=== PATIENT | female | born 1960 | race Caucasian/White ===

== ENCOUNTER → 2020-11-01 | Outpatient (CLI) | payer OTHER ==
--- NOTE | 2020-11-01 15:05 | US ---
EXAMINATION TYPE: US pelvic complete DATE OF EXAM: 11/01/2020 COMPARISON: NONE CLINICAL HISTORY: N93.9 ABN UTERINE AND VAGINAL BLEEDING. Pt states 2 episodes of vaginal spotting, l ast episode 1 week ago TECHNIQUE: Transabdominal (TA). Transabdominal sonographic images of the pelvis were acquired. Date of LMP: pt states 5-6 years ago EXAM MEASUREMENTS: Uterus: 9.2 x 3.4 x 4.7 cm Endometrial Stripe: 0.6 cm Right Ovary: 2.3 x 2.4 x 1.5 cm Left Ovary: 2.2 x 1.8 x 1.3 cm 1. Uterus: Anteverted Heterogeneous 2. Endometrium: Thickened for post menopausal female not on HRT's 3. Right Ovary: wnl 4. Left Ovary: wnl 5. Bilateral Adnexa: wnl 6. Posterior cul-de-sac: wnl Suboptimal study in transvaginal investigation performed. Slight abnormal thickening of endometrium f or postmenopausal female. IMPRESSION: As above. Suboptimal study. Consider further investigation with transvaginal pelvic ultra sound or endometrial sampling to rule out neoplasm.
== END | disposition home or self-care (01) ==
LOC: RADUSWWP 13:55
PROVIDERS: ATTEND Internal Medicine Geriatric Medicine
DX: R93.89 Abnormal findings on diagnostic imaging of other specified body structures (principal); N93.9 Abnormal uterine and vaginal bleeding, unspecified
CPT/HCPCS: 76856

== ENCOUNTER → 2020-12-22 | Outpatient (CLI) | payer OTHER ==
--- NOTE | 2020-12-26 08:36 | MM ---
Reason for exam: screening (asymptomatic). Last mammogram was performed 4 years and 4 months ago. History: Patient is postmenopausal and has history of other cancer at age 55. Benign excisional biopsy of the right breast, 2005. Took hormonal contraceptives for 8 years. Physical Findings: A clinical breast exam by your physician is recommended on an annual basis and results should be correlated with mammographic findings. MG Screening Mammo w CAD Bilateral CC and MLO view(s) were taken. Prior study comparison: September 06, 2016, bilateral MG screening mammo w CAD. There are scattered fibroglandular densities. There is chronic nodularity in the left breast, increasing in size, 9cm and 5cm from nipple. ASSESSMENT: Incomplete: need additional imaging evaluation, BI-RAD 0 RECOMMENDATION: Ultrasound of the left breast. [facility] will attempt to contact patient to return for ultrasound.
== END | disposition home or self-care (01) ==
LOC: RADMAMWWP 09:26
PROVIDERS: ATTEND Internal Medicine Geriatric Medicine
DX: Z12.31 Encounter for screening mammogram for malignant neoplasm of breast (principal); Z78.0 Asymptomatic menopausal state
CPT/HCPCS: 77067

== ENCOUNTER 2020-12-23 06:13 | Day surgery (SDC) | payer OTHER ==
[2020-12-21 09:25] VITALS: BMI 34.3
--- NOTE | 2020-12-22 14:47 | P.HPOB ---
History of Present Illness H&P Date: 12/22/20 Chief Complaint: Postmenopausal bleeding, endometrial thickening This is a 60 y.o. female, 2, para 2, who presents for dilatation and curettage with hysteroscopy due to postmenopausal bleeding and endometrial thickening on ultrasound. Her bleeding began about a month ago when she wiped and she had a couple small clots over a few hours and then it stopped. She had some spotting the next day and then a week later. Pelvic US showed uterus measuring 9.2 x 3.4 x 4.7 cm, with an endometrial thickness of 6 mm. Ovaries normal. Her LMP was age 52-53. OB Hx: . History of 2 vaginal deliveries. 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 Review of Systems Constitutional: Reports night sweats, Reports weight gain, Denies chills, Denies fever Eyes: denies blurred vision, denies pain Ears, nose, mouth and throat: Denies headache, Denies sore throat Cardiovascular: Denies chest pain, Denies shortness of breath Respiratory: Denies cough Gastrointestinal: Reports constipation, Denies abdominal pain Genitourinary: Reports abnormal vaginal bleeding, Reports stress incontinence Menstruation: Reports postmenopausal Musculoskeletal: Reports low back pain Neurological: Reports memory loss, Denies numbness, Denies weakness Psychiatric: Reports anxiety, Reports depression, Reports difficulty concentrating Endocrine: Reports flushing Past Medical History Past Medical History: Asthma, Cancer Additional Past Medical History / Comment(s): melanoma rt leg History of Any Multi-Drug Resistant Organisms: None Reported Past Surgical History: Breast Surgery, Cholecystectomy Additional Past Surgical History / Comment(s): melanoma wide incision rt leg. lumpectomy rt breast benign Past Anesthesia/Blood Transfusion Reactions: Previous Problems w/ Anesthesia, Postoperative Nausea & Vomiting (PONV) Additional Past Anesthesia/Blood Transfusion Reaction / Comment(s): slow to wake up from anesthesia Smoking Status: Current every day smoker - Past Family History Mother Family Medical History: Cancer, COPD, Diabetes Mellitus Additional Family Medical History / Comment(s): kidney cancer Medications and Allergies Home Medications Medication Instructions Recorded Confirmed Type Albuterol Inhaler [Ventolin Hfa 1 puff INHALATION DAILY PRN 12/21/20 12/23/20 History Inhaler] Aspirin [Adult Low Dose Aspirin EC] 81 mg PO DAILY 12/21/20 12/23/20 History DULoxetine HCL [Cymbalta] 60 mg PO DAILY 12/21/20 12/23/20 History lisinopriL [Lisinopril] 20 mg PO DAILY 12/21/20 12/23/20 History Allergies Allergy/AdvReac Type Severity Reaction Status Date / Time No Known Allergies Allergy Verified 12/23/20 06:47 Exam Osteopathic Statement: *. No significant issues noted on an osteopathic structural exam other than those noted in the History and Physical/Consult. HEENT: within normal limits Heart: regular rate and rhythm Lungs: clear to auscultation bilaterally Abdomen: soft, non-tender Pelvic: Cevix-small friable polyp-removed; uterus small, anteverted, non-tender with no adnexal masses palpate Extremities: neg Negro's. Assessment and Plan (1) Postmenopausal bleeding Current Visit: No Status: Acute Code(s): N95.0 - POSTMENOPAUSAL BLEEDING SNOMED Code(s): 12466705 (2) Endometrial thickening on ultrasound Current Visit: No Status: Acute Code(s): R93.89 - ABNORMAL FINDINGS ON DX IMAGING OF OTH BODY STRUCTURES SNOMED Code(s): 099228014 Plan: Proceed with dilatation and curettage with hysteroscopy. I have discussed the risks, benefits, and alternative therapies for the above- mentioned procedure and for both sedation/anesthesia as well as necessary blood products administration, if indicated, as they pertain to this patient. The patient has indicated her understanding and acceptance of the risks and procedures discussed.
[~2020-12-23 06:13] MED LIST: HYDROmorphone 0.5 MG/0.5 ML SYRINGE IVP PRN; LACTATED RINGERS 1,000 ML IV SCH; ONDANSETRON 4 MG/2 ML VIAL IVP ONE; Pre Op ABX Message 1 EACH MISC MISCELLANE ONE; fentaNYL (PF) 50 MCG/ML 2 ML AMP IV PRN
[2020-12-23] MEDS ORDERED: LIDOCAINE 1% (10MG/ML) FOR IV START INTRADERMA ONE (06:55)
[2020-12-23] MEDS ORDERED: DEXAMETHASONE SOD PHOSPHATE 4 MG/ML 1 ML VIAL IV ONE (07:01)
[2020-12-23] MEDS ORDERED: PROPOFOL 10 MG/ML 20 ML VIAL IV ONE (07:39)
[2020-12-23] MEDS ORDERED: MIDAZOLAM 2 MG/2 ML VIAL ONE (07:39)
[2020-12-23] MEDS ORDERED: KETOROLAC 15 MG/ML 1 ML VIAL ONE (07:39)
[2020-12-23] MEDS ORDERED: fentaNYL (PF) 50 MCG/ML 2 ML AMP ONE (07:39)
[2020-12-23] MEDS ORDERED: LIDOCAINE 1% INJ 10MG/ML (20 ML MDV) ONE (07:39)
--- NOTE | 2020-12-23 08:05 | P.OP ---
Date of Procedure: 12/23/20 Preoperative Diagnosis: Postmenopausal bleeding Endometrial thickening Postoperative Diagnosis: Same Procedure(s) Performed: Dilation and curettage with hysteroscopy Anesthesia: other (Mask general) Surgeon: Danyelle Cordova Estimated Blood Loss (ml): 2 Pathology: other (Endometrial curettings) Condition: stable Disposition: same day Indications for Procedure: This is a 60 y.o. female, 2, para 2, who presents for dilatation and curettage with hysteroscopy due to postmenopausal bleeding and endometrial thickening on ultrasound. Her bleeding began about a month ago when she wiped and she had a couple small clots over a few hours and then it stopped. She had some spotting the next day and then a week later. Pelvic US showed uterus measuring 9.2 x 3.4 x 4.7 cm, with an endometrial thickness of 6 mm. Ovaries normal. Her LMP was age 52-53. Operative Findings: Uterus is mid position, sounded to 8 cm. No adnexal masses are palpated. Upon hysteroscopy, a very atrophic appearing pattern was noted. Both tubal ostia are visualized. No polyps or fibroids are visualized. Very scant endometrial tissue is obtained. Description of Procedure: The patient is taken to the operating room where she is placed in the dorsal lithotomy position. She is prepped and draped in the normal sterile fashion. Her bladder is drained with a catheter. Examination is performed under anesthesia. Uterus is to be mid position, with no adnexal masses palpated. Next a weighted speculum was placed in the patient's vagina and a right angle retractor was used to visualize the cervix. The anterior lip of the cervix is grasped with a single-tooth tenaculum. The uterus is then sounded to 8 cm. Cervix is gently dilated with Hill dilators until a hysteroscope could be passed. Hysteroscopy was performed using normal saline. The above-noted findings are made and pictures are taken. Next the hysteroscope was withdrawn and the cervix gently dilated further. Medium-size sharp curet was introduced and sharp curettage was performed until a gritty texture was noted. Very scant endometrial tissue was obtained and removed from the field. Next the single- tooth tenaculum was removed and speculum was removed. No bleeding is visualized. All sponge counts are correct. The patient is then taken to recovery room in stable condition.
[2020-12-23 08:18] VITALS: TEMP 97.6
[2020-12-23] MEDS ORDERED: ATROPINE SULFATE 0.1 MG/ML 10ML SYRINGE IVP ONE (08:31)
[2020-12-23] MEDS ORDERED: SODIUM CHLORIDE 0.9% 1,000 ML IV ONE (08:51)
[2020-12-23 08:57] VITALS: RESP 16
[2020-12-23 10:39] VITALS: BP 117/73; PULSE 98
== END 2020-12-23 11:15 | disposition home or self-care (01) ==
LOC: OR 06:13
PROVIDERS: ATTEND Obstetrics & Gynecology
DX: N85.8 Other specified noninflammatory disorders of uterus (principal); N95.0 Postmenopausal bleeding; I10 Essential (primary) hypertension; E78.5 Hyperlipidemia, unspecified; F17.210 Nicotine dependence, cigarettes, uncomplicated; R00.1 Bradycardia, unspecified; J45.909 Unspecified asthma, uncomplicated; N85.4 Malposition of uterus; Z79.51 Long term (current) use of inhaled steroids; Z79.899 Other long term (current) drug therapy; Z85.820 Personal history of malignant melanoma of skin; Z98.890 Other specified postprocedural states; Z90.49 Acquired absence of other specified parts of digestive tract; Z91.89 Other specified personal risk factors, not elsewhere classified; Z87.898 Personal history of other specified conditions; Z79.82 Long term (current) use of aspirin; Z87.42 Personal history of other diseases of the female genital tract; Z82.5 Family history of asthma and other chronic lower respiratory diseases; Z80.51 Family history of malignant neoplasm of kidney; Z83.3 Family history of diabetes mellitus
CPT/HCPCS: 88305; 58558; J2250; J1100; J2405; J2001; J0461; J3010; J1885; J2704; J1170

== ENCOUNTER → 2021-01-03 | Outpatient (CLI) | payer OTHER ==
--- NOTE | 2021-01-03 13:35 | USB ---
Reason for exam: additional evaluation requested from abnormal screening. History: Patient is postmenopausal and has history of other cancer at age 55. Benign excisional biopsy of the right breast, 2006. Took hormonal contraceptives for 8 years. Physical Findings: Nurse did not find any significant physical abnormalities on exam. US Breast Workup LT Left complete breast ultrasound includes all four quadrants, the retroareolar region and axilla. Finding demonstrates a 11 x 4 x 9mm oval, mixed lesion at 9 o'clock, possible lymph node versus duct or cyst with internal filling defect, 6 month follow up to assess for any change and potential biopsy at that time, likely mammographic correlate, seem to have been present in 2016 but slightly smaller and duct ectasia at the posterior nipple. ASSESSMENT: Probably benign, BI-RAD 3 RECOMMENDATION: Follow-up diagnostic mammogram and ultrasound of the left breast in 6 months.
== END | disposition home or self-care (01) ==
LOC: RADUSWWP 08:58
PROVIDERS: ATTEND Internal Medicine Geriatric Medicine
DX: Z78.0 Asymptomatic menopausal state (principal)

== ENCOUNTER → 2021-07-28 | Outpatient (CLI) | payer OTHER ==
--- NOTE | 2021-07-31 09:19 | MM ---
Reason for exam: follow-up at short interval from prior study. Last mammogram was performed 7 months ago. History: Patient is postmenopausal and has history of other cancer at age 55. Benign excisional biopsy of the right breast, 2005. Took hormonal contraceptives for 8 years. Physical Findings: Nurse did not find any significant physical abnormalities on exam. MG Diagnostic Mammo LT w CAD CC and MLO view(s) were taken of the left breast. Prior study comparison: December 22, 2020, bilateral MG screening mammo w CAD. September 06, 2016, bilateral MG screening mammo w CAD. There is no discrete abnormality. No significant new findings when compared with previous films. These results were verbally communicated with the patient and result sheet given to the patient on 07/28/21. ASSESSMENT: Benign, BI-RAD 2 RECOMMENDATION: Return to routine screening mammogram schedule for both breasts. Back on schedule.
--- NOTE | 2021-07-31 09:24 | USB ---
Reason for exam: follow-up at short interval from prior study. History: Patient is postmenopausal and has history of other cancer at age 55. Benign excisional biopsy of the right breast, 2005. Took hormonal contraceptives for 8 years. US Breast Limited LT Left limited breast ultrasound including focal area of concern, retroareolar and axilla demonstrates a 1.1 x 0.7 x 0.3cm oval, mixed lesion at 9 o'clock and duct ectasia at the posterior nipple. Left breast scanned 8-12 o'clock and nipple/axilla. These results were verbally communicated with the patient and result sheet given to the patient on 07/28/21. ASSESSMENT: Probably benign, BI-RAD 3 RECOMMENDATION: Ultrasound of the left breast in 6 months.
== END | disposition home or self-care (01) ==
LOC: RADMAMWWP 13:32
PROVIDERS: ATTEND Internal Medicine Geriatric Medicine
DX: R92.2 Inconclusive mammogram (principal)
CPT/HCPCS: 77065

== ENCOUNTER → 2022-03-07 | Outpatient (CLI) | payer OTHER ==
--- NOTE | 2022-03-07 12:29 | CA ---
Exercise Stress Test Report Name: Selena Maciel Exam Date: 03/07/2022 11:15 Exam Location: [facility] Ht (in): 64 Wt (lb): 210 BSA: 2.00 Ordering Phys: Benjamin Alvarado MD Referring Phys: Catie Vincent Technologist: Jeff Menjivar Age: 61 Gender: F : 1960 Procedure CPT: Indications: R07.9 CHEST PAIN ICD-10 Codes: Patient History: DIZZINESS, PALPITATIONS, HTN, SOCIAL SMOKING HX OF GREATER THAN 45 YEARS, ASTHMA Medications: LISINOPRIL, ZYMBALTA, PROBIOTIC, ASA 81 mg Meds past 24 hrs: Pretest Chest Pain: STRESS TEST Warren Protocol Exercise Duration (min:sec): 04:[address] Depressions (mm): Angina Score: Horton Score: Resting HR (bpm): 82 Peak HR (bpm): 152 Resting BP (mmHg): 127 / 72 Peak BP (mmHg): / 81 MPHR: 160 Target HR: 136 % MPHR: 95 METS: 7.1 Total Dose: Peak Dose: Atropine: Double Product: BP Response: Stress Termination: Dyspnea Maximum heart rate obtained Stress Symptoms: DIZZINESS,DIFFICULTY IN BREATHING Stress Summary: ECG ANALYSIS Resting ECG: Stress ECG: CONCLUSIONS Baseline EKG revealed normal sinus rhythm without significant ST-T changes. Patient walked for 4 minutes 25 seconds on a standard Warren protocol and achieved a maximal heart rate of 152 bpm which is more than 85% of predicted maximal. She developed fatigue and shortness of breath but did not have any angina. She had shortness of breath and dizziness. EKG did not reveal any ST segment changes to indicate ischemia. By EKG criteria this is a negative stress test with limited exercise capacity Dr. Luís Boone MD (Electronically Signed) Final Date: 07 March 2022 12:28
== END | disposition home or self-care (01) ==
LOC: RADNMMAIN 10:40
PROVIDERS: ATTEND Internal Medicine Geriatric Medicine
DX: R07.9 Chest pain, unspecified (principal)
CPT/HCPCS: 93017

== ENCOUNTER → 2023-01-04 | Outpatient (CLI) | payer OTHER ==
--- NOTE | 2023-01-04 12:36 | CTL ---
EXAMINATION TYPE: CT Low Dose Lung DATE OF EXAM ORDERED: 01/04/2023 HISTORY: Z87.891. Lung cancer screening CT DLP: [address] CTDI: 2.49 mGy Automated exposure control for dose reduction was used. SCREENING VISIT: First screening visit COMPARISON: None TECHNIQUE: Low dose computed tomography scan was performed through the chest at 1 mm thick sections a nd reconstructed images in multiple planes at 1 mm and [address] DIAGNOSTIC QUALITY: Satisfactory FINDINGS: LUNG NODULES: No clinically significant pulmonary nodule. 3 mm nodule along the left major fissure is favored to represent an intrafissural lymph node. LUNGS: COPD: Severity: None Fibrosis: Severity: None Lymph nodes: None Other findings: None RIGHT PLEURAL SPACE: Effusion: None Calcification: None Thickening: None Pneumothorax: None LEFT PLEURAL SPACE: Effusion: None Calcification: None Thickening: None Pneumothorax: None HEART: Heart Size: Normal Coronary Calcification: None Pericardial Effusion: None OTHER FINDINGS: Upper abdomen: Post cholecystectomy changes. Bony thorax: None Supraclavicular region: None Other: None IMPRESSION: No clinically significant pulmonary nodules. CT LUNG RAD AND CT CHEST RECOMMENDATION: Lung-Rad 1 Negative: Continue annual screening with LDCT in 12 months. S Modifier (other clinically significant findings): None
== END | disposition home or self-care (01) ==
LOC: RADCTMAIN 12:13
PROVIDERS: ATTEND Internal Medicine Geriatric Medicine
DX: Z12.2 Encounter for screening for malignant neoplasm of respiratory organs (principal); F17.210 Nicotine dependence, cigarettes, uncomplicated
CPT/HCPCS: 71271

== ENCOUNTER → 2023-03-05 | Outpatient (CLI) | payer OTHER ==
--- NOTE | 2023-03-05 09:44 | MM ---
Reason for Exam: Follow-up at short interval from prior study. Last mammogram was performed 2 year(s) and 2 month(s) ago. Patient History: Menarche at age 13. First Full-Term at age 21. Postmenopausal. Other cancer, age 55. Patient used Hormonal Contraceptives for 8 years. 2006, Benign Excisional Biopsy on the right side. Maternal cousin had breast cancer at or over age 50. Risk Values: Heidi 5 year model risk: 1.6%. NCI Lifetime model risk: 7.5%. Tissue Density: The breast tissue is heterogeneously dense. This may lower the sensitivity of mammography. Findings: Analyzed By CAD. Stable chronic nodularity within the left breast. No new suspicious masses within either breast. No worrisome group of calcifications within either breast. Stable postexcisional changes of the right breast. Overall Assessment: Benign, BI-RAD 2 Management: Screening Mammogram of both breasts in 1 year. A clinical breast exam by your physician is recommended on an annual basis and results should be correlated with mammographic findings. This exam should not preclude additional follow-up of suspicious palpable abnormalities. Results were given to the patient verbally at the time of exam. Note on Heidi scores and lifetime risk: 1. A Heidi score greater than 3% is considered moderate risk. If this is the case, consider specialist referral to assess eligibility for a risk reducing agent. If overall lifetime risk for the development of breast cancer is 20% or higher, the patient may qualify for future screening with alternating mammogram and breast MRI. Electronically signed and approved by: Micah Walters D.O.
--- NOTE | 2023-03-05 10:15 | BD ---
EXAMINATION TYPE: Axial Bone Density DATE OF EXAM: 03/05/2023 CLINICAL HISTORY: 62 years old Female. ICD-10 CODE: Q78.2 OSTEOPETROSIS Height: 62.0 inches Weight: 192.0 pounds FRAX RISK QUESTIONS: Glucocorticoids (More than 3mos): yes, asthma (Ex: prednisone, prednisolone, methylprednisolone, dexamethasone, and hydrocortisone). Current Tobacco Use: yes, vape RISK FACTORS HISTORY OF: Postmenopausal woman: yes, at 51 Hyperparathyroidism: no Adrenal Insufficiency: no MEDICATIONS: Prednisone or other steroids: yes, for asthma for many yrs Additional Medications: bp meds, Cymbalta, hx of ca, Additional History: hx of cancer rt leg melanoma, hypertension, arthritis pain, asthma EXAM MEASUREMENTS: Bone mineral densitometry was performed using the [employer] System. Bone mineral density as measured about the Lumbar spine is: ----- L1-L4(G/cm2): 1.206 T Score Values are as follows: ----- L1: -1.6 ----- L2: 0.6 ----- L3: 1.2 ----- L4: 0.4 ----- L1-L4: 0.2 Z Score Values are as follows: ----- L1: -1.0 ----- L2: 1.1 ----- L3: 1.7 ----- L4: 1.0 ----- L1-L4: 0.8 Bone mineral density is her first bone density at [facility] Bone mineral density about the R hip (g/cm2): 1.116 Bone mineral density about the L hip (g/cm2): 1.231 T Score values are as follows: -----R Neck: 0.2 -----L Neck: 0.3 -----R Total: 1.2 -----L Total: 1.8 Z Score values are as follows: -----R Neck: 1.0 -----L Neck: 1.1 -----R Total: 1.7 -----L Total: 2.2 Bone mineral density is her first dexa study at [facility]. FRAX%s: The graph provided illustrates a 8.8% chance for a major osteoporotic fx and a 0.3% chance fo r the hips probability for fx in 10 years time. IMPRESSION: Normal (Values between +1 and -1 indicate normal bone mass). Consider repeating this study in 5 year s or sooner if there is some new clinical indication. NOTE: T-SCORE=SD OF THE YOUNG ADULT MEAN.
== END | disposition home or self-care (01) ==
LOC: RADMAMWWP 09:20
PROVIDERS: ATTEND Internal Medicine Geriatric Medicine
DX: Q78.2 Osteopetrosis (principal); R92.8 Other abnormal and inconclusive findings on diagnostic imaging of breast; J45.909 Unspecified asthma, uncomplicated; I10 Essential (primary) hypertension; Z78.0 Asymptomatic menopausal state; Z80.3 Family history of malignant neoplasm of breast; R10.9 Unspecified abdominal pain
CPT/HCPCS: 77062; 77066; 77080

== ENCOUNTER → 2023-03-07 | Outpatient (CLI) | payer OTHER ==
--- NOTE | 2023-03-07 10:31 | US ---
EXAMINATION TYPE: US abdomen complete DATE OF EXAM: 03/07/2023 COMPARISON: NONE CLINICAL INDICATION: Female, 62 years old with history of R10.9 ABDOMINAL PAIN; Chest pain x 6 months , pt. describes it as similar to her GB pain. GB resected TECHNIQUE: Multiple sonographic images of the abdomen are obtained. FINDINGS: EXAM MEASUREMENTS: Liver Length: 16.2 cm Gallbladder Wall: Surgically absent cm CBD: 1.1 cm Spleen: 8.5 cm Right Kidney: 9.1x4.3x5.3 cm Left Kidney: 9.9x5.4x5.0 cm FURNACE PACKER NOTES: Pancreas: Tail obscured by overlying bowel gas Liver: upper limits Gallbladder: Surgically absent Evidence for sonographic Kelly's sign: No CBD: enlarged Spleen: wnl Right Kidney: No hydronephrosis or masses seen Left Kidney: No hydronephrosis or masses seen Upper IVC: wnl Abd Aorta: wnl The liver is homogenous. The intrahepatic portion of the IVC and proximal abdominal aorta are within normal limits. The visualized portions of the pancreas are homogenous. The spleen is unremarkabl e. Kidneys are symmetric and free of hydronephrosis. No renal lesions are seen. IMPRESSION: No significant abnormality at this time. The gallbladder surgically absent.
== END | disposition home or self-care (01) ==
LOC: RADUSWWP 08:12
PROVIDERS: ATTEND Internal Medicine Geriatric Medicine
DX: R10.9 Unspecified abdominal pain (principal); Z90.49 Acquired absence of other specified parts of digestive tract
CPT/HCPCS: 76700

== ENCOUNTER → 2024-10-08 | Outpatient (CLI) | payer OTHER ==
--- NOTE | 2024-10-09 21:09 | CTL ---
EXAMINATION TYPE: CT Low Dose Lung DATE OF EXAM: 10/08/2024 11:23 AM COMPARISON: 01/04/2023 CLINICAL INDICATION: Female, 63 years old with history of Z12.2 LUNG CA SCR Z87.891 FORMER SMOKER, , Lung cancer screening, History of tobacco use. TECHNIQUE: Low dose computed tomography scan was performed through the chest at 1 mm thick sections a nd reconstructed images in the coronal plane at 1 mm thick sections. Contrast used: mL of , (none if empty) Oral contrast used: (none if empty) CT DLP: Former smoker, 1 ppd x 31 years. Current vaper mGycm, Automated exposure control for dose red uction was used. CT CTDI: 2.6 mGy, Automated exposure control for dose reduction was used. SCREENING VISIT: Subsequent CT DIAGNOSTIC QUALITY: Satisfactory FINDINGS: LUNG NODULES: None. LUNGS: COPD: Severity: None Fibrosis: Severity: None Lymph nodes: None Other findings: None RIGHT PLEURAL SPACE: Effusion: None Calcification: None Thickening: None Pneumothorax: None LEFT PLEURAL SPACE: Effusion: None Calcification: None Thickening: None Pneumothorax: None HEART: Other: Ascending thoracic aorta at the level the main pulmonary artery measures 3.3 cm. The main pul monary artery at the bifurcation measures2.6 cm. Heart Size: Normal Coronary calcification: None Pericardial effusion: None OTHER FINDINGS: Upper abdomen: Normal Bony thorax: Normal Supraclavicular region: Normal IMPRESSION: 1. No suspicious abnormalities to suggest primary or metastatic neoplasm. FOLLOW UP CT CHEST RECOMMENDATION: Follow-up low-dose CT chest one year CT LUNG RAD: Lung-Rad 2 Benign Appearance or Behavior [facility], Workstation: [email or web address], 10/09/2024 9:06 PM
== END | disposition home or self-care (01) ==
LOC: RADCTMAIN 11:01
PROVIDERS: ATTEND Internal Medicine Geriatric Medicine
DX: Z12.2 Encounter for screening for malignant neoplasm of respiratory organs (principal); Z87.891 Personal history of nicotine dependence
CPT/HCPCS: 71271